=== PATIENT | male | born 1965 | race Caucasian/White ===

== ENCOUNTER 2017-12-17 07:53 | Day surgery (SDC) | payer OTHER, BC ==
[2017-12-17 11:43] VITALS: BP 134/81; PULSE 82; TEMP 97.9; BMI 35.6
== END 2017-12-17 10:30 | disposition home or self-care (01) ==
LOC: JASU-ENDO 07:53
PROVIDERS: ATTEND Internal Medicine Gastroenterology
PROC: 0DB68ZX Excision of Stomach, Via Natural or Artificial Opening Endoscopic, Diagnostic (ICD-10-PCS; 2017-12-17)
PROC: 0DB28ZX Excision of Middle Esophagus, Via Natural or Artificial Opening Endoscopic, Diagnostic (ICD-10-PCS; 2017-12-17)
PROC: 0DB38ZX Excision of Lower Esophagus, Via Natural or Artificial Opening Endoscopic, Diagnostic (ICD-10-PCS; 2017-12-17)
PROC: 0DBM8ZX Excision of Descending Colon, Via Natural or Artificial Opening Endoscopic, Diagnostic (ICD-10-PCS; 2017-12-17)
PROC: 0DB98ZX Excision of Duodenum, Via Natural or Artificial Opening Endoscopic, Diagnostic (ICD-10-PCS; principal; 2017-12-17 09:00)
DX: Z12.11 Encounter for screening for malignant neoplasm of colon (principal); Z80.0 Family history of malignant neoplasm of digestive organs; K63.5 Polyp of colon; K57.30 Diverticulosis of large intestine without perforation or abscess without bleeding; K21.0 Gastro-esophageal reflux disease with esophagitis; K44.9 Diaphragmatic hernia without obstruction or gangrene; K31.7 Polyp of stomach and duodenum; K29.70 Gastritis, unspecified, without bleeding
CPT/HCPCS: 88305-TC; 88342-TC

== ENCOUNTER 2018-12-01 10:14 | Emergency (ER) | payer OTHER, BC ==
--- NOTE | 2018-12-01 10:19 | PDOC ---
History of Present Illness - General Chief Complaint: Injury Stated Complaint: LEFT KNEE INJURY Time Seen by Provider: 12/01/18 10:16 History Source: Patient Exam Limitations: No Limitations - History of Present Illness Initial Comments: 12/01/18 10:24 53 y/o male getting out of shower la Denies swelling to the knee. Will be following up with his Orthopedics this week.st night slipped and injured left knee. Has had prior surgery to right knee and back, but states that does not bother him. No LOC. No neck, back or abdominal pain. Took some Ibuprofen, not his Hydrocodone. Denies chest pain, SOB, fever or chills. Is this a multiple visit Asthma Patient?: No Severity: mild Past History - Past Medical History Allergies/Adverse Reactions: Allergies Allergy/AdvReac Type Severity Reaction Status Date / Time No Known Drug Allergies Allergy Mild Verified 12/01/18 10:15 Home Medications: Ambulatory Orders Losartan Potassium [Cozaar -] 100 mg PO DAILY 11/07/16 Rosuvastatin Calcium [Crestor] 10 mg PO DAILY 11/07/16 oxyCODONE HCL [Roxicodone -] 5 mg PO Q6H PRN #20 tablet MDD 20mg 11/09/16 Aspirin/Acetaminophen/Caffeine [Excedrin Migraine Caplet] 1 cap PO ASDIR Nash-3 Acid Ethyl Esters 1 gm PO DAILY 12/14/17 Mag Carb/Aluminum Hydrox/Algin [Gaviscon Liquid] 30 ml PO Q4H PRN #355 oz Pantoprazole Sodium 40 mg PO DAILY #90 tablet. 12/17/17 Hydrochlorothiazide [Hctz -] 25 mg PO DAILY 12/01/18 Anemia: No Asthma: No Cancer: No Cardiac Disorders: No CVA: No COPD: No CHF: No Dementia: No Diabetes: No GI Disorders: Yes (GERD, DIVERTICULOSIS) Disorders: No HTN: Yes Hypercholesterolemia: Yes Liver Disease: No Seizures: No Thyroid Disease: No - Surgical History Abdominal Surgery: No Appendectomy: No Cardiac Surgery: No Cholecystectomy: No Lung Surgery: No Neurologic Surgery: No Orthopedic Surgery: Yes (RIGHT KNEE ARTHROSCOPY AND REPLACEMENT) - Immunization History Immunization Up to Date: Yes - Psycho Social/Smoking Cessation Hx Smoking History: Never smoked Have you smoked in the past 12 months: No Hx Alcohol Use: Yes (OCC) Drug/Substance Use Hx: No Substance Use Type: None Hx Substance Use Treatment: No Review of Systems - Review of Systems Able to Perform ROS?: Yes Is the patient limited French proficient: No Constitutional: No: Chills, Fever Respiratory: No: Cough, Shortness of Breath Cardiac (ROS): No: Chest Pain ABD/GI: No: Diarrhea, Nausea, Vomiting Musculoskeletal: Yes: Joint Pain. No: Back Pain Integumentary: No: Bruising, Rash All Other Systems: Reviewed and Negative *Physical Exam - Physical Exam General Appearance: Yes: Nourished, Appropriately Dressed. No: Apparent Distress HEENT: positive: EOMI, MYCHAL, Normal ENT Inspection, Normal Voice, Pharynx Normal Neck: positive: Trachea midline, Normal Thyroid, Supple. negative: Tender, Rigid Respiratory/Chest: positive: Lungs Clear, Normal Breath Sounds. negative: Chest Tender, Respiratory Distress Cardiovascular: positive: Regular Rhythm, Regular Rate, S1, S2. negative: Edema , JVD, Murmur Vascular Pulses: Femoral (R): 4+, Femoral (L): 4+, Carotid (R): 4+, Carotid (L) : 4+, Dorsalis-Pedis (R): 4+, Doralis-Pedis (L): 4+ Gastrointestinal/Abdominal: positive: Normal Bowel Sounds, Flat, Soft. negative : Tender, Organomegaly Lymphatic: negative: Adenopathy, Tenderness, Other Musculoskeletal: positive: Normal Inspection. negative: CVA Tenderness, Muscle Spasm (back with no spinous process tenderness, full ROM, neg SLR test b/l) Extremity: positive: Normal Capillary Refill, Normal Inspection, Normal Range of Motion (tenderness to knee, neg valgus/varus maneuvers, neg Biacna test, strength 5+/5 b/l in LE, no focal deficits noted). negative: Swelling, Calf Tenderness, Erythema Integumentary: positive: Normal Color, Dry, Warm. negative: Swelling, Ecchymosis, Bruising Neurologic: positive: animal feeder II-XII NML intact, Fully Oriented, Alert, Normal Mood/ Affect, Normal Response, Motor Strength 5/5 ED Treatment Course - ADDITIONAL ORDERS Additional order review: 12/01/18 10:27 53 y/o male s/p fall last night with left knee pain Will x-ray left knee 12/01/18 11:02 X-ray left knee: no fracture seen Ice, Motrin, rest Follow up with Orthopedics Pt refused knee imobilzer and has cane Pt is in agreement with plan If no improvement will need MRI left knee as out patient Discharge - Discharge Information Problems reviewed: Yes Clinical Impression/Diagnosis: Strain of left knee Qualifiers: Encounter type: initial encounter Qualified Code(s): S86.912A - Strain of unspecified muscle(s) and tendon(s) at lower leg level, left leg, initial encounter Condition: Good Disposition: HOME - Admission No - Follow up/Referral Referrals: Bladimir Harper [Primary Care Provider] - - Patient Discharge Instructions Patient Printed Discharge Instructions: DI for Knee Sprain Additional Instructions: Ice, Motrin, rest Follow up with your Orthopedics If worsen return to ER - Post Discharge Activity
[2018-12-01 10:34] VITALS: BP 145/98; PULSE 93; TEMP 98.6; BMI 35.2
== END 2018-12-01 11:10 | disposition home or self-care (01) ==
LOC: FER 10:14
DX: S86.912A Strain of unspecified muscle(s) and tendon(s) at lower leg level, left leg, initial encounter (principal); X58.XXXA Exposure to other specified factors, initial encounter; Y93.89 Activity, other specified; Y92.89 Other specified places as the place of occurrence of the external cause; M79.662 Pain in left lower leg; E78.00 Pure hypercholesterolemia, unspecified; K21.9 Gastro-esophageal reflux disease without esophagitis; I10 Essential (primary) hypertension
CPT/HCPCS: 73562-TC-LT-FY; 99282-25

== ENCOUNTER 2022-05-25 07:20 | Emergency (ER) | payer OTHER, BC ==
[2022-05-25] MEDS ORDERED: KETOROLAC TROMETHAMINE 60 MG/2 ML VIAL IM ONE (07:32)
[2022-05-25 07:39] VITALS: BP 136/102; PULSE 80; RESP 20; TEMP 98.6; BMI 36.3
[2022-05-25] MEDS ORDERED: KETOROLAC TROMETHAMINE 30 MG/1 ML VIAL ONE (07:40)
== END 2022-05-25 08:31 | disposition home or self-care (01) ==
LOC: FER 07:20
PROC: 3E023GC Introduction of Other Therapeutic Substance into Muscle, Percutaneous Approach (ICD-10-PCS; principal; 2022-05-25)
DX: S92.515A Nondisplaced fracture of proximal phalanx of left lesser toe(s), initial encounter for closed fracture (principal); W23.1XXA Caught, crushed, jammed, or pinched between stationary objects, initial encounter
CPT/HCPCS: 73660-TC-LT-FY; 99284-25

== ENCOUNTER 2022-07-13 04:12 | Day surgery (SDC) | payer OTHER, BC ==
[2022-07-11 16:05] VITALS: BMI 36.3
[2022-07-13 09:34] VITALS: TEMP 98
[2022-07-13 09:48] VITALS: PULSE 74
[2022-07-13 10:05] VITALS: BP 124/87; RESP 18
== END 2022-07-13 10:03 | disposition home or self-care (01) ==
LOC: JASU-ENDO 04:12
PROVIDERS: ATTEND Internal Medicine Gastroenterology
PROC: 0DB98ZX Excision of Duodenum, Via Natural or Artificial Opening Endoscopic, Diagnostic (ICD-10-PCS; 2022-07-13)
PROC: 0DB78ZX Excision of Stomach, Pylorus, Via Natural or Artificial Opening Endoscopic, Diagnostic (ICD-10-PCS; 2022-07-13)
PROC: 0DB28ZX Excision of Middle Esophagus, Via Natural or Artificial Opening Endoscopic, Diagnostic (ICD-10-PCS; 2022-07-13)
PROC: 0DB48ZX Excision of Esophagogastric Junction, Via Natural or Artificial Opening Endoscopic, Diagnostic (ICD-10-PCS; 2022-07-13)
PROC: 0DJD8ZZ Inspection of Lower Intestinal Tract, Via Natural or Artificial Opening Endoscopic (ICD-10-PCS; principal; 2022-07-13 09:00)
DX: Z12.11 Encounter for screening for malignant neoplasm of colon (principal); K57.30 Diverticulosis of large intestine without perforation or abscess without bleeding; K64.8 Other hemorrhoids; K21.00 Gastro-esophageal reflux disease with esophagitis, without bleeding; K44.9 Diaphragmatic hernia without obstruction or gangrene; K29.60 Other gastritis without bleeding
CPT/HCPCS: 88305-TC; 88342-TC